=== PATIENT | female | born 1980 | race American Indian/Alaskan Native ===

== ENCOUNTER 2017-03-29 23:33 | Emergency (ER) | payer SELFPAY ==
[2017-03-30] MEDS ORDERED: CLEOCIN IM ONE (06:37)
--- NOTE | 2017-03-30 07:03 | Emergency Department Report ---
- General Chief complaint: Skin/Abscess/Foreign Body Stated complaint: ABCESS Time Seen by Provider: 03/30/17 06:28 Source: patient Mode of arrival: Ambulatory Limitations: No Limitations - History of Present Illness Initial comments: Patient comes into the ER today with complaints of right breast abscess for the past 4 days. Patient states that she has had the same thing multiple times in the past and has been to surgery and had it worked on as well. Patient states that this is not as bad as it usually gets and she wanted to get on top of before it got bad. Patient denies any body aches, fever, chills. Patient states that she's been putting some warm compresses on it to see if that helps. Patient states that it has been 2 years since the last time she had to have surgery. - Related Data Previous Rx's Medication Instructions Recorded Last Taken Type Clindamycin [Clindamycin CAP] 300 mg PO Q6H #28 capsule 10/20/13 Unknown Rx Doxycycline [Vibramycin CAP] 100 mg PO Q12H #14 capsule 10/20/13 Unknown Rx HYDROcodone/APAP 10-325 [[place] 1 each PO Q4-6H PRN #20 tablet 10/20/13 Unknown Rx 10-325 mg TAB] Clindamycin [Clindamycin CAP] 300 mg PO Q6H #40 capsule 03/30/17 Unknown Rx traMADol [Ultram 50 MG tab] 50 mg PO Q4HR PRN #30 tablet 03/30/17 Unknown Rx Allergies Allergy/AdvReac Type Severity Reaction Status Date / Time Sulfa (Sulfonamide Allergy Hives Verified 10/20/13 01:34 Antibiotics) Abscess Boil HPI - HPI Chief Complaint: Skin/Abscess/Foreign Body Stated Complaint: ABCESS Time Seen by Provider: 03/30/17 06:28 Home Medications: Previous Rx's Medication Instructions Recorded Last Taken Type Clindamycin [Clindamycin CAP] 300 mg PO Q6H #28 capsule 10/20/13 Unknown Rx Doxycycline [Vibramycin CAP] 100 mg PO Q12H #14 capsule 10/20/13 Unknown Rx HYDROcodone/APAP 10-325 [[place] 1 each PO Q4-6H PRN #20 tablet 10/20/13 Unknown Rx 10-325 mg TAB] Clindamycin [Clindamycin CAP] 300 mg PO Q6H #40 capsule 06/30/17 Unknown Rx traMADol [Ultram 50 MG tab] 50 mg PO Q4HR PRN #30 tablet 03/30/17 Unknown Rx Allergies/Adverse Reactions: Allergies Allergy/AdvReac Type Severity Reaction Status Date / Time Sulfa (Sulfonamide Allergy Hives Verified 10/20/13 01:34 Antibiotics) ED Review of Systems ROS: Stated complaint: ABCESS Other details as noted in HPI Constitutional: denies: chills, fever Eyes: denies: eye pain, eye discharge, vision change ENT: denies: ear pain, throat pain Respiratory: denies: cough, shortness of breath, wheezing Cardiovascular: denies: chest pain, palpitations Endocrine: no symptoms reported Gastrointestinal: denies: abdominal pain, nausea, diarrhea Genitourinary: denies: urgency, dysuria, discharge Musculoskeletal: denies: back pain, joint swelling, arthralgia Skin: lesions. 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) Additional medical history: heart murmur - Surgical History Additional Surgical History: MULTIPLE ABSCESSCES RIGHT BREAST - Social History Smoking Status: Never Smoker Substance Use Type: None - Medications Home Medications: Home Medications Medication Instructions Recorded Confirmed Last Taken Type Clindamycin [Clindamycin CAP] 300 mg PO Q6H #28 capsule 10/20/13 Unknown Rx Doxycycline [Vibramycin CAP] 100 mg PO Q12H #14 capsule 10/20/13 Unknown Rx HYDROcodone/APAP 10-325 [[place] 1 each PO Q4-6H PRN #20 tablet 10/20/13 Unknown Rx 10-325 mg TAB] Clindamycin [Clindamycin CAP] 300 mg PO Q6H #40 capsule 03/30/17 Unknown Rx traMADol [Ultram 50 MG tab] 50 mg PO Q4HR PRN #30 tablet 03/30/17 Unknown Rx ED Physical Exam - General Limitations: No Limitations General appearance: alert, in no apparent distress - Head Head exam: Present: atraumatic, normocephalic - Eye Eye exam: Present: normal appearance - ENT ENT exam: Present: mucous membranes moist - Neck Neck exam: Present: normal inspection. Absent: lymphadenopathy - Respiratory Respiratory exam: Present: normal lung sounds bilaterally, chest wall tenderness (right medial breast tenderness and induration without any obvious localized loculations noted. Tissue is warm to touch. Multiple areas of well- healed incisional scars noted consistent with history of surgery.). Absent: respiratory distress, decreased breath sounds - Cardiovascular Cardiovascular Exam: Present: regular rate, normal rhythm. Absent: systolic murmur, diastolic murmur, rubs, gallop - GI/Abdominal GI/Abdominal exam: Present: soft, normal bowel sounds - Extremities Exam Extremities exam: Present: normal inspection - Back Exam Back exam: Present: normal inspection - Neurological Exam Neurological exam: Present: alert, oriented X3 - Psychiatric Psychiatric exam: Present: normal affect, normal mood - Skin Skin exam: Present: warm, dry, intact, normal color. Absent: rash ED Course Vital Signs 03/30/17 03/30/17 00:16 04:44 Temperature 99.3 F 98.9 F Pulse Rate 102 H 95 H Respiratory 14 18 Rate Blood Pressure 132/92 Blood Pressure 132/92 116/79 [Left] O2 Sat by Pulse 99 97 Oximetry ED Medical Decision Making - Medical Decision Making Patient is nontoxic and hemodynamically stable. I informed patient that it does not feel that she has any isolated loculation for me to pinpoint incision and drainage at this time. I believe her infections is more of a diffuse cellulitic infection at this time. I will start her on antibiotics accordingly and referred to plastic surgeon for further evaluation of her breast tissue as to why she keeps reoccurring with this infection. Patient is in agreement with treatment plan and patient is stable for discharge. Critical care attestation.: If time is entered above; I have spent that time in minutes in the direct care of this critically ill patient, excluding procedure time. ED Disposition Clinical Impression: Cellulitis of female breast Disposition: DC-01 TO HOME OR SELFCARE Is pt being admited?: No Does the pt Need Aspirin: No Condition: Good Instructions: Cellulitis (ED), Abscess (ED) Prescriptions: Clindamycin [Clindamycin CAP] 300 mg PO Q6H #40 capsule traMADol [Ultram 50 MG tab] 50 mg PO Q4HR PRN #30 tablet PRN Reason: Pain Referrals: PRIMARY CARE, [Primary Care Provider] - 3-5 Days [facility] MD [Staff Physician] - 3-5 Days surgeon, your [Other] - 3-5 Days Time of Disposition: 07:06
[2017-03-30 07:36] VITALS: BP 121/81
== END 2017-03-30 07:35 | disposition home or self-care (01) ==
LOC: ED 23:33
DX: N61.1 Abscess of the breast and nipple (principal); E11.9 Type 2 diabetes mellitus without complications
CPT/HCPCS: 96372; 99282

== ENCOUNTER 2018-05-14 17:37 | Inpatient (IN) | payer OTHER ==
[2018-05-14] MEDS ORDERED: NACL 0.9% 500 ML 500 ML IV ONE (17:59)
[2018-05-14 18:31] LABS: INR 1.07 (0.87-1.13)
[2018-05-14 18:35] LABS: Alanine Aminotransferase 8 units/L (7-56); Albumin 3.7 g/dL (3.9-5); BUN/Creatinine Ratio 10; Blood Urea Nitrogen 6 mg/dL (7-17); Calcium 9.5 mg/dL (8.4-10.2); Hemolysis Index 0
[2018-05-14 18:37] LABS: Red Blood Count TNR M/mm3 (3.65-5.03)
[2018-05-14 18:38] LABS: Hematocrit TNR % (30.3-42.9); Hemoglobin TNR gm/dl (10.1-14.3); Mean Corpuscular HGB Conc TNR % (30-34); Mean Corpuscular Hemoglobin TNR pg (28-32); Mean Corpuscular Volume TNR fl (79-97)
[2018-05-14 18:39] LABS: Basophils % (Auto) TNR % (0.0-1.8); Eosinophils % (Auto) TNR % (0.0-4.3); Lymphocytes % (Auto) TNR % (13.4-35.0); Mean Platelet Volume TNR fl (6-12); Monocytes % (Auto) TNR % (0.0-7.3); Platelet Count TNR K/mm3 (140-440)
[2018-05-14 18:40] LABS: Basophils # (Auto) TNR K/mm3 (0.0-0.1); Eosinophils # (Auto) TNR K/mm3 (0.0-0.4); Lymphocytes # (Auto) TNR K/mm3 (1.2-5.4); Monocytes # (Auto) TNR K/mm3 (0.0-0.8)
[2018-05-14 18:41] LABS: Red Cell Distribution Width TNR % (13.2-15.2)
[2018-05-14 19:06] LABS: Basophils # (Auto) 0.1 K/mm3 (0.0-0.1); Basophils % (Auto) 0.4 % (0.0-1.8); Eosinophils % (Auto) 0.1 % (0.0-4.3); Hematocrit 41.1 % (30.3-42.9); Hemoglobin 14.2 gm/dl (10.1-14.3); Lymphocytes # (Auto) 1.3 K/mm3 (1.2-5.4); Lymphocytes % (Auto) 9.5 % (13.4-35.0); Mean Corpuscular HGB Conc 35 % (30-34); Mean Corpuscular Hemoglobin 29 pg (28-32); Mean Corpuscular Volume 85 fl (79-97); Monocytes # (Auto) 1.2 K/mm3 (0.0-0.8); Monocytes % (Auto) 9.3 % (0.0-7.3); Platelet Count 298 K/mm3 (140-440); Red Blood Count 4.85 M/mm3 (3.65-5.03); Red Cell Distribution Width 13.6 % (13.2-15.2)
--- NOTE | 2018-05-14 20:12 | XRay Report ---
FINAL REPORT EXAM: XR CHEST ROUTINE 2V HISTORY: possible Sepsis TECHNIQUE: PA and lateral views of the chest PRIORS: None. FINDINGS: Lines, tubes, and devices: N/A Lungs and pleura: Trachea is normal in position. Lungs are clear of infiltrate, pleural effusion, vascular congestion, or pneumothorax. Cardiomediastinal silhouette: Cardiac and mediastinal silhouettes are unremarkable. Other: Bony structures are intact. Soft tissues: On the lateral view, there is a rounded lucency in the superior breast containing air-fluid level. Clinical correlation is needed. This may be postsurgical in nature. I believe it is located in the medial right breast on the frontal view is overlying the thoracic spine. This measures approximately 5.5 x 6.2 cm.. Abscess is not excluded IMPRESSION: 1. no acute cardiopulmonary process seen. 2. Abnormal rounded lucency with an air-fluid level overlying superior breast tissue on the lateral view. This is likely involving the right breast and may be postsurgical in nature. Abscess is not excluded. Clinical correlation is needed
[2018-05-14] MEDS ORDERED: DILAUDID IV PRN (21:28)
[2018-05-14] MEDS ORDERED: NACL 0.9% 1000 ML IV ONE (21:28)
--- NOTE | 2018-05-14 21:28 | Emergency Department Report ---
ED Fever HPI - General Chief Complaint: Fever Stated Complaint: ABSCESS RIGHT BREAST Time Seen by Provider: 05/14/18 21:16 Source: patient Exam Limitations: no limitations - History of Present Illness Initial Comments: Patient c/o right breast abscess which has been ongoing for the past 4 days. Timing/Duration: constant Fever Severity/Quality: greater than 100.5 F Fever Therapy POST SPLITTER: none Associated Symptoms: denies symptoms ED Review of Systems ROS: Stated complaint: ABSCESS RIGHT BREAST Other details as noted in HPI Comment: All other systems reviewed and negative Constitutional: chills, fever Eyes: denies: eye pain, eye discharge ENT: denies: ear pain Respiratory: denies: cough, shortness of breath Cardiovascular: denies: chest pain, palpitations Endocrine: no symptoms reported Gastrointestinal: denies: abdominal pain, nausea, vomiting, diarrhea Genitourinary: denies: urgency, dysuria Musculoskeletal: denies: back pain, joint swelling Skin: other (Right bresat abscess) Neurological: denies: headache, weakness Psychiatric: denies: anxiety, depression Hematological/Lymphatic: denies: easy bleeding, easy bruising ED Past Medical Hx - Past Medical History Hx Diabetes: Yes (under control, not on meds) Hx Seizures: Yes (grand mal) Additional medical history: heart murmur - Surgical History Additional Surgical History: MULTIPLE ABSCESSCES RIGHT BREAST - Social History Smoking Status: Never Smoker Substance Use Type: None - Medications Home Medications: Home Medications Medication Instructions Recorded Confirmed Last Taken Type HYDROcodone/APAP 10-325 [[place] 1 each PO Q4-6H PRN #20 tablet 10/20/13 05/14/18 Unknown Rx 10-325 mg TAB] traMADol [Ultram 50 MG tab] 50 mg PO Q4HR PRN #30 tablet 03/30/17 05/14/18 Unknown Rx ED Physical Exam - General Limitations: No Limitations General appearance: alert, in no apparent distress - Head Head exam: Present: atraumatic, normocephalic, normal inspection - Eye Eye exam: Present: normal appearance, PERRL, EOMI Pupils: Present: normal accommodation - ENT ENT exam: Present: normal exam, normal orophraynx, mucous membranes moist - Neck Neck exam: Present: normal inspection, full ROM. Absent: tenderness - Respiratory Respiratory exam: Present: normal lung sounds bilaterally. Absent: respiratory distress, wheezes, rales, rhonchi, stridor - Cardiovascular Cardiovascular Exam: Present: normal rhythm, tachycardia, normal heart sounds - GI/Abdominal GI/Abdominal exam: Present: soft, normal bowel sounds. Absent: distended, tenderness, guarding, rebound - Extremities Exam Extremities exam: Present: normal inspection, full ROM, normal capillary refill - Back Exam Back exam: Present: normal inspection, full ROM. Absent: tenderness - Neurological Exam Neurological exam: Present: alert, oriented X3, CN II-XII intact - Psychiatric Psychiatric exam: Present: normal affect, normal mood - Skin Skin exam: Present: warm, dry, normal color, other (Right breast abscess with tenderness to palpation.) ED Course Vital Signs 05/14/18 05/14/18 17:57 21:25 Temperature 100.8 F H Pulse Rate 138 H 128 H Respiratory 18 16 Rate Blood Pressure 182/104 Blood Pressure 138/89 [Left] O2 Sat by Pulse 97 96 Oximetry - Reevaluation(s) Reevaluation #1: 05/14/18 22:20 I discussed patient care with the hospitalist [place] and silverware salesperson Dr Douglas. He will admit patient to the hospital for further management. Dr yRlee Bird (Breast Surgeon) will be consulted for Surgery. ED Medical Decision Making - Lab Data Result diagrams: 05/14/18 21:49 05/14/18 21:49 - EKG Data -: EKG Interpreted by Me EKG shows normal: sinus rhythm Rate: tachycardia (137) - EKG Data Interpretation: nonspecific ST-T wave kristy, other (No STEMI) - Radiology Data Radiology results: report reviewed, image reviewed - Medical Decision Making Sepsis. Right Breast Abscess. Critical care attestation.: If time is entered above; I have spent that time in minutes in the direct care of this critically ill patient, excluding procedure time. ED Disposition Clinical Impression: Abscess of right breast, Fever and chills, Cellulitis of right breast Sepsis Qualifiers: Sepsis type: sepsis due to unspecified organism Qualified Code(s): A41.9 - Sepsis, unspecified organism Disposition: OP ADMIT IP TO THIS HOSP Is pt being admited?: Yes Does the pt Need Aspirin: No Condition: Stable Referrals: PRIMARY CARE, [Primary Care Provider] - 3-5 Days Time of Disposition: 22:24
[2018-05-14] MEDS ORDERED: VANCOMYCIN 2,000 MG in NACL 0.9% 500 ML 500 ML IV ONE (22:00)
[2018-05-14] MEDS: PEPCID IV SCH (22:01)
[2018-05-14] MEDS: ZOSYN/NS 4.5GM/100ML 4.5 GM/100 ML VIAL IV SCH (22:01)
[2018-05-14] MEDS ORDERED: REGLAN ONE (22:02)
[2018-05-14] MEDS ORDERED: REGLAN IV ONE (22:05)
[2018-05-14 22:06] LABS: Partial Thromboplastin Time 32.8 Sec. (24.2-36.6)
[2018-05-14 22:13] LABS: Basophils # (Auto) 0.1 K/mm3 (0.0-0.1); Basophils % (Auto) 0.6 % (0.0-1.8); Eosinophils % (Auto) 0.1 % (0.0-4.3); Hematocrit 40.3 % (30.3-42.9); Hemoglobin 13.4 gm/dl (10.1-14.3); Lymphocytes # (Auto) 0.9 K/mm3 (1.2-5.4); Lymphocytes % (Auto) 6.6 % (13.4-35.0); Mean Corpuscular HGB Conc 33 % (30-34); Mean Corpuscular Hemoglobin 29 pg (28-32); Mean Corpuscular Volume 86 fl (79-97); Monocytes # (Auto) 1.7 K/mm3 (0.0-0.8); Monocytes % (Auto) 11.9 % (0.0-7.3); Platelet Count 271 K/mm3 (140-440); Red Blood Count 4.69 M/mm3 (3.65-5.03); Red Cell Distribution Width 13.6 % (13.2-15.2)
[2018-05-14] MEDS ORDERED: TYLENOL PO ONE (22:18)
[2018-05-14 22:30] LABS: Alanine Aminotransferase 7 units/L (7-56); Albumin 3.8 g/dL (3.9-5); BUN/Creatinine Ratio 9; Blood Urea Nitrogen 6 mg/dL (7-17); Calcium 9.4 mg/dL (8.4-10.2); Hemolysis Index 1
[2018-05-14] MEDS ORDERED: HumuLIN R IV ONE (22:59)
[2018-05-14 23:16] LABS: Bacteria,Urine 1+ /HPF (Negative); Bilirubin,Urine NEG (Negative); Blood,Urine NEG (Negative); Color,Urine Yellow (Yellow); Mucus,Urine FEW /HPF; RBC,Urine < 1.0 /HPF (0.0-6.0); Urobilinogen,Urine < 2.0 mg/dL (<2.0)
[2018-05-14] MEDS ORDERED: MORPHINE IV PRN (23:19)
[2018-05-14] MEDS ORDERED: TYLENOL PR PRN (23:20)
[2018-05-14] MEDS ORDERED: ZOFRAN IV PRN (23:22)
[2018-05-14] MEDS ORDERED: D50W (25GM) Syringe IV PRN (23:23)
[2018-05-14] MEDS ORDERED: VANCOMYCIN PHARMACY TO DOSE IV SCH (23:45)
--- NOTE | 2018-05-14 23:51 | Ultrasound Report ---
FINAL REPORT EXAM: US BREAST RT LIMITED HISTORY: abscess COMPARISON: None. TECHNIQUE: Directed ultrasound of the right breast was performed. FINDINGS: There is 5 x 3.6 x 5.7 centimeter abscess within the right breast containing low level internal echoes. There is no internal flow on color Doppler imaging. IMPRESSION: 5 x 3.6 x 5.7 centimeter right breast abscess.
[2018-05-15] MEDS: NACL 0.9% 1000 ML 1,000 ML IV SCH ×2 (02:55→23:42)
--- NOTE | 2018-05-15 05:51 | History and Physical Report ---
CHIEF COMPLAINT: Fever. OTHER COMPLAINT: Include swelling and pain in the right breast. HISTORY OF PRESENTING ILLNESS: The patient is a 37-year-old female who states she has been having pain and swelling in the right breast area going on for about 4 days. The patient denied any history of trauma. Denied any history of insect bite or insect stinging and denied any history of any shaving. Said there is associated history of fever. There was associated history of fever or chills. There is no history of nausea or vomiting. The patient also denies history of diaphoresis and presented to the Emergency Room for evaluation. PAST MEDICAL HISTORY: Pertinent for diabetes mellitus which is diet controlled. Also, the patient has past history of seizure disorder and heart murmur. PAST SURGICAL HISTORY: Pertinent for incision and drainage of abscess in the same right breast. FAMILY HISTORY: Noncontributory. SOCIAL HISTORY: The patient does not smoke, does not drink alcohol, does not use illicit drugs. MEDICATIONS: The patient is on [place] 10/325 mg 1 by mouth every 4-6 hours as needed for pain and tramadol 50 mg by mouth every 4 hours. ALLERGIES: THE PATIENT IS ALLERGIC TO SULFA DRUGS. REVIEW OF SYSTEMS: CONSTITUTIONAL: There is fever and chills, no diaphoresis. HEENT: There is no headache or sore throat. CARDIOVASCULAR: There is no chest pain or orthopnea. RESPIRATORY: There is no shortness of breath or cough. GASTROINTESTINAL: There is no nausea, no vomiting, no abdominal pain, diarrhea, or constipation. NEUROLOGICAL: There is no numbness, no dizziness, no altered mental status. MUSCULOSKELETAL: There is swelling in the right breast area. No joint swelling or joint pain. DERMATOLOGIC: There is swelling in the right breast area. No itching. No rashes ____. GENITOURINARY: There is no dysuria, hematuria, or flank pain. Rest of system review is normal. PHYSICAL EXAMINATION: GENERAL: At the time of exam, the patient was found to be alert, oriented x 3 and not in acute distress. VITAL SIGNS: Shows temperature of 100.8 degrees Fahrenheit, pulse of 138, respirations 18, blood pressure 152/104, O2 sat of 97% on room air. HEENT: Showed pupils to be equal, round, and reactive to light and accommodation. Extraocular muscles are intact. NECK: Supple with no JVD or carotid bruit. CARDIOVASCULAR: Showed normal first and second heart sounds with no gallops or murmurs. RESPIRATORY: Show good air entry on both sides of the lung with no abnormal breath sounds. GASTROINTESTINAL SYSTEM: Show abdomen to be full, soft, nontender with no organomegaly or rigidity. NEUROLOGIC: Shows no focal deficit. MUSCULOSKELETAL: Show no joint swelling or tenderness. DERMATOLOGICAL SYSTEM: Shows swelling in the right breast area, which measures about 5 x 3.6 x 5.7 cm in the right breast area, which is tender to touch. GENITOURINARY SYSTEM: There is no costovertebral angle tenderness. PERTINENT LABORATORY DATA AND IMAGING STUDIES: The patient has a chest x-ray done that shows no active cardiopulmonary lesion. There is finding of an abnormal rounded lucency, with an air fluid level overlying superior breast tissue on the lateral view and the radiologist said that this is likely involving the right breast that may be post-surgical in nature and that an abscess is not excluded. Clinical correlation is needed. Also, the patient has ultrasound of the breast done that shows a 5 x 3.6 x 5.7 cm right breast abscess. The patient has CBC done with elevated white count of 13,300, normal hemoglobin, normal hematocrit and CBC differential shows elevated monocyte count of 9.3% and elevated segmented neutrophils of 80.7%. Coagulation studies show high fibrinogen level of 760. The patient's chemistry showed low sodium of 129, normal potassium, and low chloride of 87.6, with unremarkable renal function test. The patient's blood glucose level is high with a value of 343. Lactic acid level is high with a value of 2.3. Rest of chemistry shows low albumin of 3.7. Urinalysis was unremarkable. DIAGNOSES: 1. Sepsis. 2. Right breast abscess. 3. Hyponatremia. 4. Diabetes mellitus. PLAN: 1. The patient will be admitted to medical surgical floor. 2. The patient will be on consistent carbohydrate 2 g sodium diet. 3. The patient will be on Accu-Chek before meals and at bedtime, followed by low-dose sliding scale using regular insulin coverage. 4. The patient will continue surgical consult with Dr. Chao which was requested by the Emergency Room doctor. 5. The patient will be on Tylenol 650 mg by mouth every 4 hours for fever and headache. 6. The patient will be on IV Zosyn 4.5 grams q.8 hours and IV vancomycin which pharmacy to dose. 7. The patient will be on IV morphine 2 mg every 3 hours as needed for pain and IV Zofran 4 mg every 8 hours for nausea and vomiting. 8. The patient will remain n.p.o. until evaluated by the surgeon. JOB# [id number] OCN/NTS MTDD
[2018-05-15] MEDS: ZOSYN/NS 4.5GM/100ML 4.5 GM/100 ML VIAL IV SCH ×3 (06:15→23:42)
[2018-05-15] MEDS: VANCOMYCIN 1,500 MG in NACL 0.9% 500 ML 500 ML IV SCH ×3 (07:02→23:42)
[2018-05-15] MEDS: HumuLIN R SUB-Q SCH ×3 (07:30→18:37)
[2018-05-15 08:30] LABS: BUN/Creatinine Ratio 8; Blood Urea Nitrogen 5 mg/dL (7-17); Calcium 8.9 mg/dL (8.4-10.2); Hemolysis Index 3
[2018-05-15] MEDS: HEPARIN SUB-Q SCH ×2 (10:00→23:43)
[2018-05-15] MEDS: PEPCID IV SCH ×2 (10:00→23:43)
[2018-05-15] MEDS ORDERED: ULTRAM PO PRN (11:55)
--- NOTE | 2018-05-15 12:02 | Progress Note ---
Assessment and Plan Assessment and plan: --Right breast abscess; Continue current antibiotics, and follow breast surgeon evaluation Possible I&D, supportive care --Sepsis; secondary to breast abscess, IV fluids Follow surgery recommendations, follow cultures --Leukocytosis; secondary to sepsis, closely monitor --Type 2 diabetes mellitus; Accu-Chek sliding scale coverage and ADA diet and insulin as needed --Hyponatremia; mild improvement, IV fluids Closely monitor electrolytes --Obesity; BMI 36.1; weight reduction counseling and medically stable --DVT prophylaxis; Lovenox Follow breast surgeon evaluation and recommendations Follow cultures Plan of care reviewed with the patient and her nurse I discussed with breast surgeon, she is recommended Consult IR for incision and drainage I discussed with on-call IRs Dr. Freitas for a consult and possible I&D/ aspiration History Interval history: Patient seen and examined medical records reviewed Admitted with a right breast abscess Pending breast surgeon evaluation Patient complains of some pain Alert awake oriented 3 Vital signs reviewed Hospitalist Physical - Constitutional Vitals: Temp Pulse Resp BP Pulse Ox 99.3 F 111 H 18 110/70 96 05/15/18 07:19 05/15/18 07:19 05/15/18 07:19 05/15/18 07:19 05/15/18 07:19 General appearance: Present: mild distress, well-nourished, obese - EENT Eyes: Present: PERRL, EOM intact - Neck Neck: Present: supple, normal ROM, other (Rt breast abscess.mild discharge medial aspect) - Respiratory Respiratory effort: normal Respiratory: bilateral: diminished, negative: rales, rhonchi, wheezing - Cardiovascular Rhythm: regular Heart Sounds: Present: S1 & S2 - Extremities Extremities: no ischemia, No edema - Abdominal General gastrointestinal: soft, non-tender, non-distended, normal bowel sounds - Integumentary Integumentary: Present: clear, warm - Psychiatric Psychiatric: appropriate mood/affect, cooperative - Neurologic Neurologic: CNII-XII intact, moves all extremities - Additional findings Additional findings: Right breast cellulitis/abscess Ruptured, discharge noted, dressing in place Results - Labs CBC & Chem 7: 05/14/18 21:49 05/15/18 07:21 Labs: Laboratory Last Values WBC 14.0 K/mm3 (4.5-11.0) H 05/14/18 21:49 RBC 4.69 M/mm3 (3.65-5.03) 05/14/18 21:49 Hgb 13.4 gm/dl (10.1-14.3) 05/14/18 21:49 Hct 40.3 % (30.3-42.9) 05/14/18 21:49 MCV 86 fl (79-97) 05/14/18 21:49 MCH 29 pg (28-32) 05/14/18 21:49 MCHC 33 % (30-34) 05/14/18 21:49 RDW 13.6 % (13.2-15.2) 05/14/18 21:49 Plt Count 271 K/mm3 (140-440) 05/14/18 21:49 Lymph % (Auto) 6.6 % (13.4-35.0) L 05/14/18 21:49 [place] % (Auto) 11.9 % (0.0-7.3) H 05/14/18 21:49 Eos % (Auto) 0.1 % (0.0-4.3) 05/14/18 21:49 Baso % (Auto) 0.6 % (0.0-1.8) 05/14/18 21:49 Lymph # 0.9 K/mm3 (1.2-5.4) L 05/14/18 21:49 [place] # 1.7 K/mm3 (0.0-0.8) H 05/14/18 21:49 Eos # 0.0 K/mm3 (0.0-0.4) 05/14/18 21:49 Baso # 0.1 K/mm3 (0.0-0.1) 05/14/18 21:49 Add Manual Diff TNR 05/14/18 18:00 Seg Neutrophils % 80.8 % (40.0-70.0) H 05/14/18 21:49 Seg Neutrophils # 11.3 K/mm3 (1.8-7.7) H 05/14/18 21:49 PT 14.5 Sec. (12.2-14.9) 05/14/18 18:00 INR 1.07 (0.87-1.13) 05/14/18 18:00 APTT 32.8 Sec. (24.2-36.6) 05/14/18 18:00 Fibrinogen 760 mg/dl (211-480) H 05/14/18 18:00 VBG pH 7.387 (7.320-7.420) 05/14/18 18:00 Sodium 131 mmol/L (137-145) L 05/15/18 07:21 Potassium 3.8 mmol/L (3.6-5.0) 05/15/18 07:21 Chloride 98.0 mmol/L (98-107) 05/15/18 07:21 Carbon Dioxide 18 mmol/L (22-30) L 05/15/18 07:21 Anion Gap 19 mmol/L 05/15/18 07:21 BUN 5 mg/dL (7-17) L 05/15/18 07:21 Creatinine 0.6 mg/dL (0.7-1.2) L 05/15/18 07:21 Estimated GFR > 60 ml/min 05/15/18 07:21 BUN/Creatinine Ratio 8 % 05/15/18 07:21 Glucose 325 mg/dL (65-100) H 05/15/18 07:21 POC Glucose 358 (70-105) H 05/15/18 05:36 Lactic Acid 1.90 mmol/L (0.7-2.0) 05/14/18 21:49 Calcium 8.9 mg/dL (8.4-10.2) 05/15/18 07:21 Total Bilirubin 0.80 mg/dL (0.1-1.2) 05/14/18 21:49 AST 9 units/L (5-40) 05/14/18 21:49 ALT 7 units/L (7-56) 05/14/18 21:49 Alkaline Phosphatase 107 units/L (35-129) 05/14/18 21:49 Total Creatine Kinase 30 units/L (30-135) 05/14/18 21:49 Total Protein 7.7 g/dL (6.3-8.2) 05/14/18 21:49 Albumin 3.8 g/dL (3.9-5) L 05/14/18 21:49 Albumin/Globulin Ratio 1.0 % 05/14/18 21:49 Urine Color Yellow (Yellow) 05/14/18 22:49 Urine Turbidity Clear (Clear) 05/14/18 22:49 Urine pH 5.0 (5.0-7.0) 05/14/18 22:49 Ur Specific [place] 1.025 (1.003-1.030) 05/14/18 22:49 Urine Protein 30 mg/dl mg/dL (Negative) 05/14/18 22:49 Urine Glucose (UA) >=500 mg/dL (Negative) 05/14/18 22:49 Urine Ketones 80 mg/dL (Negative) 05/14/18 22:49 Urine Blood Neg (Negative) 05/14/18 22:49 Urine Nitrite Neg (Negative) 05/14/18 22:49 Urine Bilirubin Neg (Negative) 05/14/18 22:49 Urine Urobilinogen < 2.0 mg/dL (<2.0) 05/14/18 22:49 Ur Leukocyte Esterase Neg (Negative) 05/14/18 22:49 Urine WBC (Auto) 1.0 /HPF (0.0-6.0) 05/14/18 22:49 Urine RBC (Auto) < 1.0 /HPF (0.0-6.0) 05/14/18 22:49 U Epithel Cells (Auto) 1.0 /HPF (0-13.0) 05/14/18 22:49 Urine Bacteria (Auto) 1+ /HPF (Negative) 05/14/18 22:49 Urine Mucus Few /HPF 05/14/18 22:49 Blood Type O POSITIVE 05/14/18 21:49 Antibody Screen Negative 05/14/18 21:49
[2018-05-15] MEDS ORDERED: TYLENOL PO PRN (13:30)
--- NOTE | 2018-05-15 14:37 | Consultation ---
History of Present Illness - Reason for Consult Consult date: 05/15/18 right breast abscess - History of Present Illness The patient presents with the history of worsening right breast abscess along the medial aspect of the breast. This abscess had previously been lanced as an outpatient but had recurred. The patient has a history of prior breast abscesses in this area and was told the scar tissue secondary to repeated lancing predisposes her to abscesses in this area. Past History Past Medical History: other (Ultima breast abscesses.) Social history: no significant social history Family history: no significant family history Medications and Allergies Allergies Allergy/AdvReac Type Severity Reaction Status Date / Time Sulfa (Sulfonamide Allergy Hives Verified 05/14/18 17:57 Antibiotics) Home Medications Medication Instructions Recorded Confirmed Last Taken Type HYDROcodone/APAP 10-325 [[place] 1 each PO Q4-6H PRN #20 tablet 10/20/13 05/14/18 Unknown Rx 10-325 mg TAB] traMADol [Ultram 50 MG tab] 50 mg PO Q4HR PRN #30 tablet 03/30/17 05/14/18 Unknown Rx Active Meds: Active Medications Acetaminophen (Tylenol) 650 mg [place] Q4H PRN PRN Reason: Fever >101 Acetaminophen (Tylenol) 650 mg PO Q4H PRN PRN Reason: Fever >101 Last Admin: 05/15/18 13:31 Dose: 650 mg Dextrose (D50w (25gm) Syringe) 50 ml IV PRN PRN PRN Reason: Hypoglycemia Famotidine (Pepcid) 20 mg IV BID [facility] Last Admin: 05/15/18 10:00 Dose: Not Given Heparin Sodium (Porcine) (Heparin) 5,000 unit SUB-Q Q12HR [facility] Last Admin: 05/15/18 10:00 Dose: Not Given Hydromorphone HCl (Dilaudid) 0.5 mg IV Q4H PRN PRN Reason: Pain , Severe (7-10) Piperacillin Sod/Tazobactam Sod (Zosyn/Ns 4.5gm/100ml) 4.5 gm in 100 mls @ 200 mls/hr IV Q8HR [facility]; Protocol Last Admin: 05/15/18 06:15 Dose: 200 mls/hr Sodium Chloride (Nacl 0.9% 1000 Ml) 1,000 mls @ 150 mls/hr IV DIRECT [facility] Last Admin: 05/15/18 02:55 Dose: 150 mls/hr Vancomycin HCl 1,500 mg/ (Sodium Chloride) 530 mls @ 333.333 mls/hr IV Q8H [facility] Last Admin: 05/15/18 07:02 Dose: 333.333 mls/hr Insulin Human Isoph/Insulin Regular (Humulin 70/30) 10 unit SUB-Q BIDDIAB [facility] Insulin Human Regular (Humulin R) 0 units SUB-Q AC [facility]; Protocol Last Admin: 05/15/18 11:30 Dose: Not Given Insulin Human Regular (Humulin R) 0 units SUB-Q QHS [facility]; Protocol Morphine Sulfate (Morphine) 2 mg IV Q3H PRN PRN Reason: Pain, Moderate (4-6) Ondansetron HCl (Zofran) 4 mg IV Q8H PRN PRN Reason: Nausea And Vomiting Tramadol HCl (Ultram) 50 mg PO Q4HR PRN PRN Reason: Pain Vancomycin HCl (Vancomycin Pharmacy To Dose) 1 each IV PKCONSULT [facility]; Protocol Review of Systems All systems: negative Exam - Constitutional Vitals: Temp Pulse Resp BP Pulse Ox 99.3 F 111 H 18 110/70 96 05/15/18 07:19 05/15/18 07:19 05/15/18 07:19 05/15/18 07:19 05/15/18 07:19 General appearance: Present: no acute distress - EENT Eyes: Present: PERRL ENT: hearing intact - Neck Neck: Present: supple, normal ROM - Respiratory Respiratory effort: normal - Extremities Extremities: no ischemia, abnormal (medial aspect of the right breast tender, firm) - Abdominal General gastrointestinal: Present: deferred Female genitourinary: Present: deferred - Psychiatric Psychiatric: appropriate mood/affect, cooperative Results - Labs CBC & Chem 7: 05/14/18 21:49 05/15/18 07:21 Labs: Abnormal lab results 05/14/18 05/14/18 05/14/18 Range/Units 18:00 18:00 18:00 WBC (4.5-11.0) K/mm3 MCHC (30-34) % Lymph % (Auto) (13.4-35.0) % [place] % (Auto) (0.0-7.3) % Lymph # (1.2-5.4) K/mm3 [place] # (0.0-0.8) K/mm3 Seg Neutrophils % (40.0-70.0) % Seg Neutrophils # (1.8-7.7) K/mm3 Fibrinogen 760 H (211-480) mg/dl Sodium 129 L (137-145) mmol/L Chloride 87.6 L (98-107) mmol/L Carbon Dioxide (22-30) mmol/L BUN 6 L (7-17) mg/dL Creatinine 0.6 L (0.7-1.2) mg/dL Glucose 343 H (65-100) mg/dL POC Glucose (70-105) Lactic Acid 2.30 H* (0.7-2.0) mmol/L Total Protein 8.7 H (6.3-8.2) g/dL Albumin 3.7 L (3.9-5) g/dL 05/14/18 05/14/18 05/14/18 Range/Units 18:43 21:49 21:49 WBC 13.3 H 14.0 H (4.5-11.0) K/mm3 MCHC 35 H (30-34) % Lymph % (Auto) 9.5 L 6.6 L (13.4-35.0) % [place] % (Auto) 9.3 H 11.9 H (0.0-7.3) % Lymph # 0.9 L (1.2-5.4) K/mm3 [place] # 1.2 H 1.7 H (0.0-0.8) K/mm3 Seg Neutrophils % 80.7 H 80.8 H (40.0-70.0) % Seg Neutrophils # 10.7 H 11.3 H (1.8-7.7) K/mm3 Fibrinogen (211-480) mg/dl Sodium 129 L (137-145) mmol/L Chloride 87.7 L (98-107) mmol/L Carbon Dioxide (22-30) mmol/L BUN 6 L (7-17) mg/dL Creatinine (0.7-1.2) mg/dL Glucose 368 H (65-100) mg/dL POC Glucose (70-105) Lactic Acid (0.7-2.0) mmol/L Total Protein (6.3-8.2) g/dL Albumin 3.8 L (3.9-5) g/dL 05/14/18 05/15/18 05/15/18 Range/Units 23:02 00:17 05:36 WBC (4.5-11.0) K/mm3 MCHC (30-34) % Lymph % (Auto) (13.4-35.0) % [place] % (Auto) (0.0-7.3) % Lymph # (1.2-5.4) K/mm3 [place] # (0.0-0.8) K/mm3 Seg Neutrophils % (40.0-70.0) % Seg Neutrophils # (1.8-7.7) K/mm3 Fibrinogen (211-480) mg/dl Sodium (137-145) mmol/L Chloride (98-107) mmol/L Carbon Dioxide (22-30) mmol/L BUN (7-17) mg/dL Creatinine (0.7-1.2) mg/dL Glucose (65-100) mg/dL POC Glucose 375 H 313 H 358 H (70-105) Lactic Acid (0.7-2.0) mmol/L Total Protein (6.3-8.2) g/dL Albumin (3.9-5) g/dL 05/15/18 Range/Units 07:21 WBC (4.5-11.0) K/mm3 MCHC (30-34) % Lymph % (Auto) (13.4-35.0) % [place] % (Auto) (0.0-7.3) % Lymph # (1.2-5.4) K/mm3 [place] # (0.0-0.8) K/mm3 Seg Neutrophils % (40.0-70.0) % Seg Neutrophils # (1.8-7.7) K/mm3 Fibrinogen (211-480) mg/dl Sodium 131 L (137-145) mmol/L Chloride (98-107) mmol/L Carbon Dioxide 18 L (22-30) mmol/L BUN 5 L (7-17) mg/dL Creatinine 0.6 L (0.7-1.2) mg/dL Glucose 325 H (65-100) mg/dL POC Glucose (70-105) Lactic Acid (0.7-2.0) mmol/L Total Protein (6.3-8.2) g/dL Albumin (3.9-5) g/dL - Imaging and Cardiology Venous US: image reviewed (rest ultrasound) Assessment and Plan Patient will need placement of a drainage catheter and appropriate antibiotics therapy to allow her breast abscess heal. This will be planned for tomorrow morning.
--- NOTE | 2018-05-15 18:41 | Consultation ---
History of Present Illness Consult date: 05/15/18 Reason for consult: other (Right breast abscess) Requesting physician: OLIVER HILL Chief complaint: Right breast abscess of the lower inner quadrant - History of present illness History of present illness: This is a 37 year old premenopausal lady recently admitted yesterday evening for right breast abscess. Surgical breast oncology consulted for evaluation. Patient reports a 4 day history of right breast pain and swelling. She reports a prior right breast infection at same location 4 years ago and she was treated with incision and drainage and antibiotics. Last mammogram was 4 years ago. She reports no family history of breast, ovarian, prostate or colon cancer. Right breast ultrasound obtained yesterday with findings of a 5 cm breast abscess. Patient with elevated WBC and fevers at admission, patient a diabetic with elevated glucose levels as well. Past History Past Medical History: diabetes, other (right breast abscesses) Past Surgical History: Other (right breast I&D 4 years ago) Social history: no significant social history Family history: no significant family history Medications and Allergies Allergies Allergy/AdvReac Type Severity Reaction Status Date / Time Sulfa (Sulfonamide Allergy Hives Verified 05/14/18 17:57 Antibiotics) Home Medications Medication Instructions Recorded Confirmed Last Taken Type HYDROcodone/APAP 10-325 [[place] 1 each PO Q4-6H PRN #20 tablet 10/20/13 05/14/18 Unknown Rx 10-325 mg TAB] traMADol [Ultram 50 MG tab] 50 mg PO Q4HR PRN #30 tablet 03/30/17 05/14/18 Unknown Rx Active Meds: Active Medications Acetaminophen (Tylenol) 650 mg [place] Q4H PRN PRN Reason: Fever >101 Acetaminophen (Tylenol) 650 mg PO Q4H PRN PRN Reason: Fever >101 Last Admin: 05/15/18 13:31 Dose: 650 mg Dextrose (D50w (25gm) Syringe) 50 ml IV PRN PRN PRN Reason: Hypoglycemia Famotidine (Pepcid) 20 mg IV BID [facility] Last Admin: 05/15/18 10:00 Dose: Not Given Heparin Sodium (Porcine) (Heparin) 5,000 unit SUB-Q Q12HR [facility] Last Admin: 05/15/18 10:00 Dose: Not Given Hydromorphone HCl (Dilaudid) 0.5 mg IV Q4H PRN PRN Reason: Pain , Severe (7-10) Piperacillin Sod/Tazobactam Sod (Zosyn/Ns 4.5gm/100ml) 4.5 gm in 100 mls @ 200 mls/hr IV Q8HR [facility]; Protocol Last Admin: 05/15/18 06:15 Dose: 200 mls/hr Sodium Chloride (Nacl 0.9% 1000 Ml) 1,000 mls @ 150 mls/hr IV DIRECT [facility] Last Admin: 05/15/18 02:55 Dose: 150 mls/hr Vancomycin HCl 1,500 mg/ (Sodium Chloride) 530 mls @ 333.333 mls/hr IV Q8H [facility] Last Admin: 05/15/18 07:02 Dose: 333.333 mls/hr Insulin Human Isoph/Insulin Regular (Humulin 70/30) 10 unit SUB-Q BIDDIAB [facility] Insulin Human Regular (Humulin R) 0 units SUB-Q AC [facility]; Protocol Last Admin: 05/15/18 11:30 Dose: Not Given Insulin Human Regular (Humulin R) 0 units SUB-Q QHS [facility]; Protocol Morphine Sulfate (Morphine) 2 mg IV Q3H PRN PRN Reason: Pain, Moderate (4-6) Ondansetron HCl (Zofran) 4 mg IV Q8H PRN PRN Reason: Nausea And Vomiting Tramadol HCl (Ultram) 50 mg PO Q4HR PRN PRN Reason: Pain Vancomycin HCl (Vancomycin Pharmacy To Dose) 1 each IV PKCONSULT [facility]; Protocol Review of Systems - Constitutional fever, chills - Breasts right: change in shape, swelling, masses, pain - Endocrine high blood sugars Exam Vital Signs Temp Pulse Resp BP Pulse Ox 100.8 F H 138 H 18 182/104 97 05/14/18 17:57 05/14/18 17:57 05/14/18 17:57 05/14/18 17:57 05/14/18 17:57 - General physical appearance Positive: well developed, well nourished - Eyes Positive: PERRL, normal occular movement - ENT Positive: normal pinna, normal nares, normal mucosa, no hearing loss, no congestion - Neck Positive: no masses, no bruits, trachea midline, no lymphadectomy, no venous distension - Respiratory Positive: normal expansion, normal respiratory effort - Cardiovascular Rhythm: regular - Extremities Extremities: no ischemia, No edema, normal temperature, normal color, Full ROM - Breasts Breasts: other (right breast abcess at the 4-5:00 position 14-16 cm from the nipple at probable sebaceous cyst site with bedsided drainage of at least 150 cc of pus obtained and cultures taken and significant decrease in size of abscess cavtiy-->area started to self drain upon examination from 5 mm skin opening and the exrpessed drainage at bedside upon palpation applied) - Abdomen Abdomen: Present: soft - Genitourinary Female Genitourinary: deferred - Integumentary no rash, no growths, no abnormal pigmentation - Neurologic Neurologic: alert and oriented to time, place and person, motor strength and sensation are grossly intact, CN II-XII intact - Psychiatric Psychiatric: appropriate mood/affect, intact judgment & insight, memory intact, cooperative Results - Labs 05/14/18 21:49 05/15/18 07:21 Abnormal lab results 05/14/18 05/14/18 05/14/18 Range/Units 18:00 18:00 18:43 WBC 13.3 H (4.5-11.0) K/mm3 MCHC 35 H (30-34) % Lymph % (Auto) 9.5 L (13.4-35.0) % [place] % (Auto) 9.3 H (0.0-7.3) % Lymph # (1.2-5.4) K/mm3 [place] # 1.2 H (0.0-0.8) K/mm3 Seg Neutrophils % 80.7 H (40.0-70.0) % Seg Neutrophils # 10.7 H (1.8-7.7) K/mm3 Fibrinogen 760 H (211-480) mg/dl Sodium (137-145) mmol/L Chloride (98-107) mmol/L Carbon Dioxide (22-30) mmol/L BUN (7-17) mg/dL Creatinine (0.7-1.2) mg/dL Glucose (65-100) mg/dL POC Glucose (70-105) Lactic Acid 2.30 H* (0.7-2.0) mmol/L Albumin (3.9-5) g/dL Acetaminophen (10.0-30.0) ug/mL 05/14/18 05/14/18 05/14/18 Range/Units 21:49 21:49 23:02 WBC 14.0 H (4.5-11.0) K/mm3 MCHC (30-34) % Lymph % (Auto) 6.6 L (13.4-35.0) % [place] % (Auto) 11.9 H (0.0-7.3) % Lymph # 0.9 L (1.2-5.4) K/mm3 [place] # 1.7 H (0.0-0.8) K/mm3 Seg Neutrophils % 80.8 H (40.0-70.0) % Seg Neutrophils # 11.3 H (1.8-7.7) K/mm3 Fibrinogen (211-480) mg/dl Sodium 129 L (137-145) mmol/L Chloride 87.7 L (98-107) mmol/L Carbon Dioxide (22-30) mmol/L BUN 6 L (7-17) mg/dL Creatinine (0.7-1.2) mg/dL Glucose 368 H (65-100) mg/dL POC Glucose 375 H (70-105) Lactic Acid (0.7-2.0) mmol/L Albumin 3.8 L (3.9-5) g/dL Acetaminophen (10.0-30.0) ug/mL 05/15/18 05/15/18 05/15/18 Range/Units 00:17 05:36 07:21 WBC (4.5-11.0) K/mm3 MCHC (30-34) % Lymph % (Auto) (13.4-35.0) % [place] % (Auto) (0.0-7.3) % Lymph # (1.2-5.4) K/mm3 [place] # (0.0-0.8) K/mm3 Seg Neutrophils % (40.0-70.0) % Seg Neutrophils # (1.8-7.7) K/mm3 Fibrinogen (211-480) mg/dl Sodium 131 L (137-145) mmol/L Chloride (98-107) mmol/L Carbon Dioxide 18 L (22-30) mmol/L BUN 5 L (7-17) mg/dL Creatinine 0.6 L (0.7-1.2) mg/dL Glucose 325 H (65-100) mg/dL POC Glucose 313 H 358 H (70-105) Lactic Acid (0.7-2.0) mmol/L Albumin (3.9-5) g/dL Acetaminophen (10.0-30.0) ug/mL 05/15/18 05/15/18 Range/Units 15:16 17:48 WBC (4.5-11.0) K/mm3 MCHC (30-34) % Lymph % (Auto) (13.4-35.0) % [place] % (Auto) (0.0-7.3) % Lymph # (1.2-5.4) K/mm3 [place] # (0.0-0.8) K/mm3 Seg Neutrophils % (40.0-70.0) % Seg Neutrophils # (1.8-7.7) K/mm3 Fibrinogen (211-480) mg/dl Sodium (137-145) mmol/L Chloride (98-107) mmol/L Carbon Dioxide (22-30) mmol/L BUN (7-17) mg/dL Creatinine (0.7-1.2) mg/dL Glucose (65-100) mg/dL POC Glucose 308 H (70-105) Lactic Acid (0.7-2.0) mmol/L Albumin (3.9-5) g/dL Acetaminophen 7.0 L (10.0-30.0) ug/mL Diabetes panel 05/14/18 05/15/18 Range/Units 21:49 07:21 Sodium 129 L 131 L (137-145) mmol/L Potassium 4.1 3.8 (3.6-5.0) mmol/L Chloride 87.7 L 98.0 (98-107) mmol/L Carbon Dioxide 22 18 L (22-30) mmol/L BUN 6 L 5 L (7-17) mg/dL Creatinine 0.7 0.6 L (0.7-1.2) mg/dL Glucose 368 H 325 H (65-100) mg/dL Calcium 9.4 8.9 (8.4-10.2) mg/dL AST 9 (5-40) units/L ALT 7 (7-56) units/L Alkaline Phosphatase 107 (35-129) units/L Total Protein 7.7 (6.3-8.2) g/dL Albumin 3.8 L (3.9-5) g/dL Calcium panel 05/14/18 05/15/18 Range/Units 21:49 07:21 Calcium 9.4 8.9 (8.4-10.2) mg/dL Albumin 3.8 L (3.9-5) g/dL Pituitary panel 05/14/18 05/15/18 Range/Units 21:49 07:21 Sodium 129 L 131 L (137-145) mmol/L Potassium 4.1 3.8 (3.6-5.0) mmol/L Chloride 87.7 L 98.0 (98-107) mmol/L Carbon Dioxide 22 18 L (22-30) mmol/L BUN 6 L 5 L (7-17) mg/dL Creatinine 0.7 0.6 L (0.7-1.2) mg/dL Glucose 368 H 325 H (65-100) mg/dL Calcium 9.4 8.9 (8.4-10.2) mg/dL Adrenal panel 05/14/18 05/15/18 Range/Units 21:49 07:21 Sodium 129 L 131 L (137-145) mmol/L Potassium 4.1 3.8 (3.6-5.0) mmol/L Chloride 87.7 L 98.0 (98-107) mmol/L Carbon Dioxide 22 18 L (22-30) mmol/L BUN 6 L 5 L (7-17) mg/dL Creatinine 0.7 0.6 L (0.7-1.2) mg/dL Glucose 368 H 325 H (65-100) mg/dL Calcium 9.4 8.9 (8.4-10.2) mg/dL Total Bilirubin 0.80 (0.1-1.2) mg/dL AST 9 (5-40) units/L ALT 7 (7-56) units/L Alkaline Phosphatase 107 (35-129) units/L Total Protein 7.7 (6.3-8.2) g/dL Albumin 3.8 L (3.9-5) g/dL Assessment and Plan This is a 37 year old lady recently admitted for right breast abscess. Physical exam of right breast abscess with drainage noted upon bedside examination today with at least 100 cc of pus drainage at bedside from 5 mm skin opening. Patient with recurrent breast abscess and most probable for untreated sebaceous cyst. Cultures taken at the bedside today. As discussed with patient and primary team doctor today, will allow for breast to continue to drain, will repeat breast ultrasound tomorrow by radiology-ordered and will follow-up. If additional area is noted on ultrasound amendable to aspiration, recommend radiology ultrasound guided aspiration, a significant amount was drained today though. Patient will need outpatient follow-up mammogram and breast ultrasound and will obtain. Once infection as cleared, patient will need excisional biopsy of probable sebaceous cyst given area highly likely to reoccur again after mammogram is obtained. Warm compresses to the breast four times a day recommended and discussed with patient and nursing staff as well as at least BID showers/baths to abscess area. Patient needs to be discharged home on po antibiotics of Bactrim or Clindamycin pending culture results and can be changed as an outpatient. Will follow, thank you for this consult. Please call with immediate questions, . - Patient Problems (1) Abscess of right breast Current Visit: Yes Status: Acute (2) Cellulitis of right breast Current Visit: Yes Status: Acute (3) Fever and chills Current Visit: Yes Status: Acute (4) Sepsis Current Visit: Yes Status: Acute Qualifiers: Sepsis type: sepsis due to unspecified organism Qualified Code(s): A41.9 - Sepsis, unspecified organism (5) Diabetes Current Visit: Yes Status: Acute
[2018-05-15] MEDS ORDERED: HumuLIN R SUB-Q SCH (22:00)
[2018-05-16] MEDS: ZOSYN/NS 4.5GM/100ML 4.5 GM/100 ML VIAL IV SCH ×2 (07:00→15:10)
[2018-05-16] MEDS: VANCOMYCIN 1,500 MG in NACL 0.9% 500 ML 500 ML IV SCH ×2 (07:03→15:09)
[2018-05-16 08:19] LABS: BUN/Creatinine Ratio 8; Blood Urea Nitrogen 4 mg/dL (7-17); Calcium 8.3 mg/dL (8.4-10.2); Hemolysis Index 22
[2018-05-16 08:25] VITALS: BP 100/65
[2018-05-16 08:32] LABS: Basophils % (Auto) 0.3 % (0.0-1.8); Eosinophils # (Auto) 0.1 K/mm3 (0.0-0.4); Eosinophils % (Auto) 1.1 % (0.0-4.3); Hematocrit 33.5 % (30.3-42.9); Hemoglobin 11.4 gm/dl (10.1-14.3); Lymphocytes # (Auto) 1.2 K/mm3 (1.2-5.4); Lymphocytes % (Auto) 12.7 % (13.4-35.0); Mean Corpuscular HGB Conc 34 % (30-34); Mean Corpuscular Hemoglobin 29 pg (28-32); Mean Corpuscular Volume 86 fl (79-97); Monocytes # (Auto) 1.4 K/mm3 (0.0-0.8); Monocytes % (Auto) 14.6 % (0.0-7.3); Platelet Count 274 K/mm3 (140-440); Red Blood Count 3.91 M/mm3 (3.65-5.03); Red Cell Distribution Width 13.3 % (13.2-15.2)
[2018-05-16] MEDS: HumuLIN R SUB-Q SCH ×2 (08:57→12:57)
[2018-05-16] MEDS: PEPCID IV SCH (09:00)
[2018-05-16] MEDS: HEPARIN SUB-Q SCH (09:00)
--- NOTE | 2018-05-16 10:30 | Event Note ---
Date: 05/16/18 Had spontaneous drainage. Drainage procedure cancelled.
--- NOTE | 2018-05-16 11:41 | Ultrasound Report ---
RIGHT BREAST ULTRASOUND: 05/16/18 CLINICAL: Followup abscess after needle aspiration. COMPARISON: 05/14/18 FINDINGS: Ultrasound of the right breast demonstrated a persistent irregular fluid collection at 3 o'clock extending centimeters from the nipple. It contains low-level internal echoes and measures approximately 5.7 x 3.3 x 5.4 cm.The fluid collection is slightly smaller compared to the previous exam. IMPRESSION: A persistent abscess measuring 5.7 x 3.3 x 5.4 cm. BI-RADS 2 - - Benign
--- NOTE | 2018-05-16 12:56 | Discharge Summary ---
Providers - Providers Date of Admission: 05/14/18 23:16 Date of discharge: 05/16/18 Attending physician: OLIVER HILL 05/14/18 22:25 Consult to Physician [CONS] Routine Comment: Consulting Provider: EN SELF Physician Instructions: Reason For Exam: Right Breast Abscess 05/15/18 13:26 Consult to Physician [CONS] Routine Comment: Consulting Provider: SABRINA COLON Physician Instructions: Reason For Exam: Rt.Breast abscess /for US guided drainage/ID Primary care physician: [employer] Hospitalization Condition: Stable Disposition: DC-01 TO HOME OR SELFCARE Time spent for discharge: 32 min Core Measure Documentation - Palliative Care Palliative Care/ Comfort Measures: Not Applicable - Core Measures Any of the following diagnoses?: none Exam - Constitutional Vitals: Temp Pulse Resp BP Pulse Ox 98.3 F 89 20 100/65 98 05/16/18 07:52 05/16/18 07:52 05/16/18 07:52 05/16/18 07:52 05/16/18 07:52 General appearance: Present: no acute distress, well-nourished - EENT Eyes: Present: PERRL, EOM intact - Neck Neck: Present: supple, normal ROM - Respiratory Respiratory effort: normal Respiratory: negative: rales, rhonchi, wheezing - Cardiovascular Rhythm: regular Heart Sounds: Present: S1 & S2 - Extremities Extremities: no ischemia, No edema - Abdominal General gastrointestinal: Present: soft, non-tender, non-distended, normal bowel sounds - Integumentary Integumentary: Present: clear, warm - Musculoskeletal Musculoskeletal: strength equal bilaterally - Psychiatric Psychiatric: appropriate mood/affect, cooperative - Neurologic Neurologic: CNII-XII intact, moves all extremities Plan Activity: no restrictions Diet: diabetic Wound: per wound nurse instructions Additional Instructions: f/u PMD for diabetes control.[ currently diet controlled adv by PMD] Follow up with: ZARI VARGAS MD [Primary Care Provider] - 3-5 Days EN SELF MD [Staff Physician] - 7 Days Prescriptions: Clindamycin [Clindamycin CAP] 300 mg PO Q8H #30 cap metFORMIN [Glucophage] 500 mg PO BIDDIAB #30 tablet
[2018-05-16] MEDS ORDERED: GLUCOPHAGE PO SCH (17:00)
[2018-05-16] MEDS ORDERED: PEPCID PO SCH (22:00)
== END 2018-05-16 17:14 | disposition home or self-care (01) | DRG 872 ==
LOC: ED 17:37 → 4A 23:16
PROVIDERS: ADMIT Internal Medicine; ATTEND Internal Medicine
DX: A41.9 Sepsis, unspecified organism (principal); E87.1 Hypo-osmolality and hyponatremia; N61.1 Abscess of the breast and nipple; E11.9 Type 2 diabetes mellitus without complications; E66.9 Obesity, unspecified; Z88.2 Allergy status to sulfonamides; Z79.899 Other long term (current) drug therapy; Z68.36 Body mass index [BMI] 36.0-36.9, adult; Z71.3 Dietary counseling and surveillance
CPT/HCPCS: 36415; 71046; 80048; 80053; 80202; 80320; 81001; 82140; 82550; 82805; 82962; 83036; 85025; 85384; 85610; 85730; 86850; 86900; 86901; 87040; 87076; 87086; 87116; 87186; 93005; 93010; 96374; 99285; G0480; J1644; J1815; J2270; J2543; J2765; J3370; J7030; J7040